=== PATIENT | male | born 1970 ===

== ENCOUNTER → 2023-12-27 15:30 | Outpatient (REF) | payer OTHER, SELFPAY ==
[2023-12-27 17:28] LABS: % Basophils 0.5 % (0-2); % Eosinophils 1.6 % (0-6); % Immature Granulocytes 0.4 % (0-0.5); % Lymphocytes 31.6 % (20.5-51.1); % Monocytes 8.7 % (1.7-9.3); % Neutrophils 57.2 % (42.2-75.2); Absolute Basophils 0.1 10^3/uL (0-0.2); Absolute Eosinophils 0.2 10^3/uL (0-0.7); Absolute Lymphocytes 2.9 10^3/uL (1.2-3.4); Absolute Monocytes 0.8 10^3/uL (0.1-0.6); Absolute Neutrophils 5.3 10^3/uL (1.4-6.5); Hematocrit 43.9 % (39.0-52.0); Mean Corp Hgb Conc. 34.2 g/dL (33.0-37.0); Mean Corpuscular Hgb 28.1 pg (27.0-31.0); Mean Corpuscular Volume 82.4 fL (80.0-94.0); Mean Platelet Volume 9.3 fL (7.4-10.4); Nucleated Red Blood Cells % 0 % (-); Platelet Count 274 10^3/uL (130-400); Red Blood Cell Count 5.33 10^6/uL (4.70-6.10); Red Cell Dist. Width 13.3 % (11.5-14.5); White Blood Cell Count 9.2 10^3/uL (4.8-10.8)
[2023-12-27 17:45] LABS: Blood Urea Nitrogen 16 mg/dl (9-20); Calcium 10.1 mg/dl (8.4-10.2); Carbon Dioxide 29 mmol/L (22-30); Chloride 101 mmol/L (98-107); Glucose 98 mg/dl (70-99); Potassium 4.5 mmol/L (3.5-5.1); Sodium 139 mmol/L (135-145); eGFR > 60.00
== END ==
LOC: RCS 15:30
PROVIDERS: ATTENDING PHYSICIAN Orthopaedic Surgery; FAMILY PHYSICIAN Internal Medicine
DX: Z01.818 Encounter for other preprocedural examination (principal)
CPT/HCPCS: 36415; 80048; 85025; 93005

== ENCOUNTER 2024-01-12 06:23 | Day surgery (SDC) | payer OTHER, SELFPAY ==
[2024-01-12] VITALS (10 sets, daily range): BP systolic 96–131; BP diastolic 67–96; BMI 33.7
[2024-01-12] MEDS: NORMOSOL-R 1000 IV (12:29)
[2024-01-12] MEDS: TYLENOL 1000 MG PO (12:30)
[2024-01-12] MEDS: CELEBREX 200 MG PO (12:30)
--- NOTE | 2024-01-12 18:58 | OR.RPT ---
Operative Report
Operative Report
Orthopaedic Surgery Operative Note
DATE OF OPERATION: 01/12/2024
PREOPERATIVE DIAGNOSES: Painful orthopedic hardware; post traumatic osteoarthritis
POSTOPERATIVE DIAGNOSES: Same
OPERATION PERFORMED: Right proximal tibia removal of hardware
SURGEON: Fernando Pace MD
ASSISTANTS: Simone Chow PA-C who helped with patient and limb positioning and retraction
ANESTHESIA: Gemera;
COMPLICATIONS: None.
ESTIMATED BLOOD LOSS: 20mL
DRAINS: None
TOURNIQUET TIME: 101 minutes.
INDICATIONS: The patient presented to my office with debilitating right knee pain due to post traumatic osteoarthritis. He had medial and lateral proximal tibia plates from prior tibia plateau fracture. He was interested in total knee replacement,
but he had hardware that would affect implanting the total knee replacement. We discussed staged removal of hardware prior to TKA. The hardware itself is not painful but we discussed removing the hardware to enable knee replacement surgery. We
reviewed the natural history of this problem, as well as the risks, benefits, and alternatives of various treatment options. The patient exhausted all nonoperative treatment options and wished to proceed with surgery. The patient understood the
risks which included, but were not limited to, bleeding, infection, failure to relieve pain, more pain than preop, damage to blood vessels and nerves, need for reoperation, mechanical failure of the implants, wound healing problems, stiffness,
instability, blood clot, pulmonary embolism, myocardial infarction, pneumonia, arrhythmia, CVA, and . The patient accepted these risks and wished to proceed. All questions were answered, and informed consent was obtained.
PROCEDURE IN DETAIL: The patient was identified in the preoperative holding area. The right leg was identified as the operative site. The patient was taken in the operating room and placed in a supine position on the operating table. General
anesthesia was performed. IV antibiotics were administered. An SCD was placed on the left lower extremity. A well-padded tourniquet was placed on the proximal thigh. All bony prominences were well padded. The right lower extremity was prepped and
draped in the usual sterile fashion.
We performed a surgical time-out. The prior incisions were identified. Plan at the start of the case was complete removal of the medial and lateral plates. Dissection was carried down to the proximal aspect of the lateral locking plate. The ITB
was elevated anterior and posterior. Location was identified on fluoroscopy. The plate and screws were identified proximally. Attempt was made at removing one of the proximal screws using the appropriate size and shape screwdriver. The screw head
started to rotate but then broke. This occurred for the other 2 proximal lateral screws as well. Dissection was carried distally to the proximal-most metaphyseal and metadiaphyseal screws. One screw stripped and had to be removed with a reverse
threaded drill. The other screw again started to engage but then broke. At this point, it was clear that the hardware was very engaged with his bone. I made a small incision distally localized under fluoroscopy to expose the distal aspect of the
lateral plate. The plate was identified and was covered almost 2/3 of its width by cortical bone. To axis and remove the screws and plate distally would have required burring away an extensive amount of his cortical bone. Decision was made to
remove just the proximal portion of the plate, the portion which would interfere with future knee replacement, and leave the the distal aspect of the lateral plate and the medial plate in place given how difficult the removal process would be and
the expected morbidity associated with that. A metal cutting bur was used to cut the proximal portion of the lateral plate. The plate was removed easily. The broken screws were identified and a trefine was used over each under fluoroscopic
guidance. After this, a reverse threaded device was used on power over the broken screws which captured and was able to successfully remove the 3 proximal screws. The medial plate and screws appeared outside of the eventual knee replacement
surgical field.
The tourniquet was let down, and meticulous hemostatis was achieved with electrocautery. The surgical sites were copiously irrigated with 3L saline. The deep fascia was closed with 0 vicryl. The deep dermal layer was closed with 2-0 PDS, and the
subcuticular skin was closed with 3-0 monocryl. A Dermabond was applied to the skin. Once this was completely dry, a sterile waterproof dressing was applied.
The patient awoke from anesthesia without any difficulties. The sponge and instrument counts were correct x2 at the end of the case.
Michael Pace MD
[2024-01-12] MEDS: ROXICODONE 5 MG PO (19:24)
[2024-01-12] MEDS: TYLENOL 650 MG PO (19:25)
== END 2024-01-12 19:40 | disposition home or self-care (01) ==
LOC: SDS 06:23
PROVIDERS: ATTENDING PHYSICIAN Orthopaedic Surgery
DX: M17.31 Unilateral post-traumatic osteoarthritis, right knee (principal); Z18.89 Other specified retained foreign body fragments; Z87.81 Personal history of (healed) traumatic fracture
CPT/HCPCS: 20680; 73560; 76000